=== PATIENT | male | born 1965 | race Caucasian/White ===

== ENCOUNTER 2022-02-06 16:58 | Emergency (ER) | payer SELFPAY ==
[~2022-02-06] VITALS: Ht 165.1 cm; Wt 76.4 kg
[2022-02-06 17:14] VITALS: BP 115/75
== END 2022-02-06 20:22 | disposition left against medical advice (07) ==
LOC: EMS 17:02
DX: L02.413 Cutaneous abscess of right upper limb (principal); Z53.21 Procedure and treatment not carried out due to patient leaving prior to being seen by health care provider